=== PATIENT | female | born 1960 | race Caucasian/White ===

== ENCOUNTER 2024-02-05 09:35 | Emergency (ER) | payer SELFPAY ==
[2024-02-05 09:35] VITALS: BP 173/64; BP 179/75; PULSE 74; PULSE 79; RESP 16; TEMP 36.6; O2SAT 100; O2SAT 98
[2024-02-05 09:49] VITALS: BMI 24.7
--- NOTE | 2024-02-05 09:58 | RAD_ITS ---
STUDY: X-RAY CHEST REASON FOR EXAM: Female, 63 years old. Chest pain, dyspnea on exertion TECHNIQUE: PA and lateral views of the chest. COMPARISON: None. FINDINGS: EKG electrodes are seen. There is hyperinflation of the lungs consistent with chronic obstructive lung disease (COPD). There is no demonstrated pleural abnormality. Normal size heart. Normal mediastinum and hali. Normal visualized pulmonary arteries. There is atherosclerotic calcification of the aortic arch with tortuosity. Normal visualized thoracic spine. Normal visualized ribs, clavicles, and shoulders. There is no demonstrated abnormality of the visualized soft tissue structures of the upper abdomen. RAD/Chest PA and Lateral IMPRESSION: Hyperinflation. Electronically Signed: Duy Villanueva MD at 11:01 EDT ,
--- NOTE | 2024-02-05 09:58 | EKG12_ITS ---
Test Reason : CP/DIZZY/SOB Blood Pressure : / mmHG Vent. Rate : 091 BPM Atrial Rate : 091 BPM P-R Int : 138 ms QRS Dur : 070 ms QT Int : 368 ms P-R-T Axes : 086 083 080 degrees QTc Int : 452 ms Sinus rhythm with marked sinus arrhythmia Otherwise normal ECG Confirmed by Vineet Hernández ([id number]), sound editor MANJEET MONTE ([id number]) on 02/06/2024 11:00:23 AM Referred By: BERONICA Confirmed By:Vineet Hernández
[2024-02-05] MEDS: Meclizine HCl 25 MG Tablet PO (10:15)
[2024-02-05 10:32] LABS: Absolute Neutrophil Count 3.8 X10^3/uL (2.0-7.7); Basophil# 0.05 X10^3/uL; Basophil% 0.8 % (0-1); Eosinophil# 0.06 X10^3/uL; Hematocrit 43.3 % (37-47); Hemoglobin 14.1 g/dL (12.0-15.0); Lymphocyte % 29.6 % (19-41); Mean Corp Hgb Conc 32.6 g/dL (32-36); Mean Corpuscular Hgb 27.8 pg (27.0-32.0); Mean Corpuscular Volume 85.4 fL (81-99); Mean Platelet Vol. 9.1 fl (6.2-12.0); Monocyte% 6.6 % (0-10); NRBC Flagged by Analyzer 0 % (0-5); Neutrophil # 3.76 X10^3/uL (2.7-7.7); Neutrophil % 61.8 % (47-70); Platelet Count 303 K/mm3 (150-450); RBC Distribution Width SD 43.1 fl (35.1-43.9); Red Blood Count 5.07 M/mm3 (4.2-5.4); White Blood Count 6.1 K/mm3 (4.4-11.0)
--- NOTE | 2024-02-05 10:46 | ED.VIS.DYS ---
HPI History of Present Illness Chief Complaint: Shortness of Breath Informant: patient Narrative Narrative: Patient presenting with multiple symptoms. For some time now she has been having dyspnea with exertion. She agrees that it feels like she is wheezing at times although I described to her what wheezing meant. She stopped smoking about 6 years ago. She was told based on a chest x-ray 1 time that she may have COPD but has never had pulmonary function testing. She states yesterday she had an episode of chest tightness, that has not recurred since then. For the last week or so, she has been having occasional episodes of that but they seem random and unassociated with the dyspnea on exertion and wheezing she described prior to that. Additionally, for the past week or so, she has been having occasional pain in her right ear and disequilibrium that she tends to triggered with position changes or turning her head. That occurred today, she calls a disequilibrium but when asked if it feels like a sensation of movement she states no and when asked if this feels like near syncope she states no, it feels numb. [facility] Medical History Arthritis History of bursitis Home Medications albuterol sulfate 90 mcg/actuation aerosol inhaler (Ventolin HFA) 1 - 2 puff inhalation Q4H PRN PRN Wheezing ##1 02/05/24 [Rx Last Taken Unknown] meclizine 25 mg tablet 25 mg PO TID PRN dizziness #20 tabs 02/05/24 [Rx Last Taken Unknown] Allergy/AdvReac Type Severity Reaction Status Date / Time Penicillins Allergy RASH Verified 02/05/24 09:37 Social History Smoking Status: Former smoker ROS ROS ED Constitutional Constitutional ED: Denies chills or fever(s) Eyes Eyes: Denies change in vision or diplopia ENT ENT ED: Reports ear pain right; Denies rhinorrhea or sore throat Cardiovascular Cardiovascular: Reports as per HPI and chest pain; Denies palpitations, radiating jaw, neck or arm pain or syncope Respiratory/Chest Respiratory/Chest: Reports dyspnea on exertion; Denies cough Gastrointestinal Gastrointestinal: Denies abdominal pain, diarrhea, nausea or vomiting Genitourinary Genitourinary ED: Denies dysuria or hematuria Musculoskeletal Musculoskeletal: Denies back pain or neck pain Integumentary Denies abscess or rash Neurologic Neurologic: Reports as per HPI and disequilibrium; Denies headache(s), paresthesias or weakness Psychiatric Psychiatric: Denies anxiety or suicidal thoughts EXAM Physical Exam Const Vital Signs: 02/05/24 09:35 02/05/24 09:35 02/05/24 09:46 Temperature 98 F Temperature Source Temporal Pulse Rate 79 74 Respiratory Rate 16 16 Respiratory Effort Normal Non-Labored Respiratory Depth Respiratory Pattern Normal Blood Pressure 179/75 H 173/64 H Blood Pressure Mean 109 100 Pulse Ox 100 98 Oxygen Delivery Method Room Air 02/05/24 09:50 02/05/24 11:13 Temperature Temperature Source Pulse Rate 72 Respiratory Rate 16 Respiratory Effort Normal Non-Labored Respiratory Depth Normal Respiratory Pattern Normal Blood Pressure 142/63 H Blood Pressure Mean 89 Pulse Ox 97 Oxygen Delivery Method Room Air Positive well nourished and well developed General Appearance ED: well developed and NAD HEENT Reports moist mucous membranes HEENT Narrative: Hard cerumen bilateral EAC. No pain with manipulation of the pinna or the tragus. Right TM is not visible, there is no otorrhea. Left TM partially visible and normal-appearing. Posterior pharynx clear normal. No stridor. No dysphonia. normocephalic and atraumatic Eyes PERRL and EOMs intact bilaterally Neck full ROM, supple, no meningeal signs and no JVD Resp normal respiratory effort and clear to auscultation bilaterally Resp Narrative: Diffusely diminished, equal bilaterally, otherwise clear. Speaking in full sentences. Cardio regular rate, regular rhythm and no murmurs GI non-tender and non-distended Auscultation: normoactive bowel sounds Palpation: soft Back/Spine no CVA tenderness General Back: other FROM Extremity normal to inspection General Extremety ED: Negative for edema, pulses abnormal or tenderness General Extremity: Negative for edema or pulses abnormal Neuro oriented x3, CN's II-XII intact bilaterally and no sensory deficits noted Neuro Narrative: Normal [id number] and [id number] bilaterally Sensorium / Orientation: awake and alert Motor Exam: strength 5/5 throughout Psych mental status grossly normal Skin no rashes or lesions noted and no wounds MDM MDM MDM Narrative Medical decision making narrative: Cardiac workup is unremarkable, chest x-ray 2 views of mitral rotation negative for acute pneumonia or pulmonary edema. Radiology in agreement, adding that she has hyperinflation. As I discussed with the patient this is not diagnostic of COPD, she may need to follow-up and have pulmonary function test based on her symptoms. I do not think she necessarily needs a course steroids right now, but I am comfortable with her being discharged home, she states she has a albuterol inhaler that she has been using on occasion for some of the stuff but it is very old, but it is helping. I am going to prescribe her albuterol inhaler and have her follow-up with her doctor who can get pulmonary function test as an outpatient. Reassured about her chest discomfort right now I do not think she requires admission for this, we offered and she declines and is comfortable following up as an outpatient. She states she does not have a PCP right now, but she wants to be within the [facility] system here locally. Therefore referred to [facility] physician in addition to [facility] pulmonology here locally. Lab Data Attestation: I reviewed the patient's lab results. Labs: Laboratory Results - last 24 hr 02/05/24 10:25 WBC 6.1 RBC 5.07 Hgb 14.1 Hct 43.3 MCV 85.4 MCH 27.8 MCHC 32.6 RDW Std Deviation 43.1 RDW Coeff of Bar 14.0 Plt Count 303 MPV 9.1 Immature Gran % (Auto) 0.200 Neut % (Auto) 61.8 Lymph % (Auto) 29.6 [place] % (Auto) 6.6 Eos % (Auto) 1.0 Baso % (Auto) 0.8 Absolute Neuts (auto) 3.8 Absolute Lymphs (auto) 1.80 Nucleated RBC % 0 Sodium 138 Potassium 3.6 Chloride 108 H Carbon Dioxide 26.0 Anion Gap 4 L BUN 14 Creatinine 0.86 Estim Creat Clear Calc 56.98 Est GFR (MDRD) Af Amer 85 Est GFR (MDRD) Non-Af 71 BUN/Creatinine Ratio 16.3 Glucose 91 Calcium 9.9 Troponin I High Sens 4 Radiography Diagnostic Testing: Clinical Impression(s) from Imaging Studies Chest X-Ray 02/05/24 09:58 IMPRESSION: Hyperinflation. Electronically Signed: Duy Villanueva MD at 11:01 EDT , Rhythm Strip Rhythm Strip: Sinus Rhythm Rate: 90 Ectopy: PAC(s) EKG Initial EKG: Attestation: I personally reviewed and interpreted this EKG as follows: Interpretation: Sinus Rhythm and No Acute Injury Pattern Comments: PACs Prior EKG tracings: not available for review Prior: No Prior Discharge Plan Triage Chief Complaint: Shortness of Breath ED Provider: Thom Weems Dx/Rx/DC Orders Clinical Impression: Episodic peripheral vertigo, Intermittent chest pain, OLIVEIRA (dyspnea on exertion) Instructions: COPD: Wheezing and Chest Tightness, Vertigo Inner Ear Problems, ED Chest Pain, Uncertain Cause Prescriptions: New meclizine [meclizine] 25 mg tablet 25 mg PO TID PRN (Reason: dizziness) Qty: 20 0RF albuterol sulfate [Ventolin HFA] 90 mcg/actuation HFA aerosol inhaler 1 - 2 puff inhalation Q4H PRN PRN (Reason: Wheezing) Qty: 1 0RF Primary Care Provider: Care Physician,No Primary Referrals: Petrona Cummins MD [Non-Staff] - ([facility]) Christina Marshall MD [Med Staff - Customer Success Specialist] - Disposition Disposition: Home, Self Care
[2024-02-05 10:52] LABS: Anion Gap 4 (5-15); BUN 14 mg/dL (7-18); BUN/Creat Ratio 16.3 RATIO (10-20); Calcium,Total 9.9 mg/dL (8.5-10.1); Chloride 108 mmol/L (98-107); Creatinine, Serum 0.86 mg/dL (0.55-1.02); EST Glomerular Filtration Rate 71 mL/min (>60); Est Glom Filt Rate - Afr Amer 85 mL/min (>60); Estimated Creatinine Clearance 56.98 ml/min; Glucose 91 mg/dL (74-106); Potassium 3.6 mmol/L (3.5-5.1); Sodium Level 138 mmol/L (136-145); Troponin-I HS 4 pg/mL (3.0-54.0)
[2024-02-05 11:13] VITALS: BP 142/63; PULSE 72; RESP 16; O2SAT 97
[2024-02-05 12:06] VITALS: BP 143/53; PULSE 69; RESP 18; TEMP 36.6; O2SAT 97
== END 2024-02-05 12:06 | disposition home or self-care (01) ==
PROVIDERS: Emergency Provider Emergency Medicine; Visit Provider Emergency Medicine
DX: H81.399 Other peripheral vertigo, unspecified ear (principal); R07.9 Chest pain, unspecified; Z87.891 Personal history of nicotine dependence; R06.09 Other forms of dyspnea
CPT/HCPCS: 71046; 80048; 84484; 85025; 93005; 99285; A4216